=== PATIENT | male | born 1950 | race Caucasian/White ===

== ENCOUNTER 2021-02-13 07:16 | Day surgery (SDC) | payer OTHER ==
[2021-02-06 11:52] VITALS: BMI 30.5
[~2021-02-13 07:16] MED LIST: CEFAZOLIN 2 GM/D5W 2 GM/50 ML ML IVPB ONE; CELECOXIB 200 MG CAPSULE PO ONE
[2021-02-13] MEDS ORDERED: MIDAZOLAM HCL 2 MG/2 ML SINGLE DOSE VIAL ONE (07:36)
[2021-02-13] MEDS ORDERED: SODIUM CHLORIDE 0.9% P/F 10 ML VIAL IJ ONE (07:36)
[2021-02-13] MEDS ORDERED: BUPIVACAINE HCL/PF 0.5% (5MG/ML) 10 ML VIAL ONE (07:36)
[2021-02-13] MEDS ORDERED: BUPIVACAINE LIPOSOME/PF (EXPAREL) 266 MG/20 ML VIAL ONE (07:36)
[2021-02-13] MEDS ORDERED: TRANEXAMIC ACID 1000 MG/10 ML VIAL IVPUSH ONE (08:00)
[2021-02-13] MEDS ORDERED: CELECOXIB 200 MG CAPSULE ONE (08:07)
[2021-02-13] MEDS ORDERED: PROPOFOL 20 ML ONE ×4 (08:41→11:11)
[2021-02-13] MEDS ORDERED: TRANEXAMIC ACID 1000 MG/10 ML VIAL ONE ×2 (09:16→10:46)
[2021-02-13] MEDS ORDERED: ONDANSETRON 4 MG/2 ML VIAL IVPUSH PRN ×2 (09:27→11:58)
[2021-02-13] MEDS ORDERED: oxyCODONE HCL 5 MG TABLET PO PRN (09:27)
[2021-02-13] MEDS ORDERED: ACETAMINOPHEN 1000 MG/100 ML VIAL (NON FORMULARY) IVPB ONE ×2 (09:27→12:06)
[2021-02-13] MEDS ORDERED: LACTATED RINGERS SOLUTION 1,000 ML IV SCH ×2 (09:30→12:00)
[2021-02-13] MEDS ORDERED: ONDANSETRON 4 MG/2 ML VIAL ONE ×2 (09:42→10:46)
[2021-02-13] MEDS ORDERED: LIDOCAINE HCL/PF 2% SDV 5ML VIAL ONE (09:42)
[2021-02-13] MEDS ORDERED: DEXAMETHASONE SOD PHOSPHATE 4 MG/1 ML VIAL ONE ×2 (09:42→10:46)
[2021-02-13] MEDS ORDERED: KETOROLAC TROMETHAMINE 30 MG/1 ML VIAL ONE (10:58)
[2021-02-13] MEDS ORDERED: MAG HYDROX/AL HYDROX/SIMETH 30 ML UNIT-DOSE CUP PO PRN (11:58)
[2021-02-13] MEDS ORDERED: MAGNESIUM HYDROX 2400MG/30ML ORAL SUSPENSION 30 ML CUP PO PRN (11:58)
[2021-02-13] MEDS ORDERED: FAMOTIDINE 20 MG TABLET PO SCH (13:00)
[2021-02-13] MEDS: ACETAMINOPHEN 325 MG TABLET (FP) PO SCH ×3 (15:20→21:11)
[2021-02-13] MEDS: oxyCODONE HCL 5 MG TABLET PO PRN ×2 (16:03→21:17)
[2021-02-13] MEDS ORDERED: CEFAZOLIN 1 GM in DEXTROSE 5%-WATER - 50 ML IVPB SCH (17:00)
[2021-02-13] MEDS: CEFAZOLIN 1 GM/D5W 1 GM/50 ML BAG IVPB SCH (17:37)
[2021-02-13] MEDS: SENNOSIDES/DOCUSATE COMBO (SENNA PLUS) TABLET (UD) PO SCH (21:11)
[2021-02-13] MEDS: ASPIRIN 81 MG CHEWABLE TABLETS PO SCH (21:12)
[2021-02-13] MEDS: IBUPROFEN 600 MG TABLET (FP) PO SCH (21:13)
[2021-02-13] MEDS ORDERED: GABAPENTIN 300 MG CAPSULE PO SCH (22:00)
[2021-02-14] MEDS: oxyCODONE HCL 5 MG TABLET PO PRN ×3 (00:49→09:30)
[2021-02-14] MEDS: CEFAZOLIN 1 GM/D5W 1 GM/50 ML BAG IVPB SCH (02:00)
[2021-02-14] MEDS: ACETAMINOPHEN 325 MG TABLET (FP) PO SCH ×2 (04:42→14:47)
[2021-02-14] MEDS: IBUPROFEN 600 MG TABLET (FP) PO SCH ×2 (07:25→14:48)
[2021-02-14 08:08] LABS: HEMATOCRIT 33.7 % (35.4-49); HEMOGLOBIN 11.1 GM/dl (11.7-16.9); MCH 26.4 pg (25.7-33.7); MCHC 32.9 g/dl (32.0-35.9); MEAN CELL VOLUME 80.2 fl (80-96); MEAN PLT VOLUME 7.6 fl (7.5-11.1); PLATELET COUNT 238 10^3/uL (134-434); RDW 14.6 % (11.9-15.9); WHITE BLOOD COUNT 8.6 K/mm3 (4.0-10.8)
[2021-02-14 08:30] LABS: CALCIUM 8.3 mg/dl (8.5-10); CREATININE 0.9 mg/dl (0.55-1.3)
[2021-02-14] MEDS: ASPIRIN 81 MG CHEWABLE TABLETS PO SCH (09:28)
[2021-02-14] MEDS: SENNOSIDES/DOCUSATE COMBO (SENNA PLUS) TABLET (UD) PO SCH (09:28)
[2021-02-14] MEDS ORDERED: PANTOPRAZOLE 20 MG TABLET PO SCH (10:00)
[2021-02-14] MEDS ORDERED: MULTIVITAMINS (DAILY MVI) TABLET (FP) PO SCH (10:00)
[2021-02-14] MEDS ORDERED: CELECOXIB 200 MG CAPSULE PO SCH (10:00)
[2021-02-14] MEDS ORDERED: PANTOPRAZOLE 40 MG TABLET PO SCH (10:00)
[2021-02-14 14:30] VITALS: BP 110/66; PULSE 62; TEMP 98.4
== END 2021-02-14 15:11 | disposition home health service (06) ==
LOC: FASUSAT 07:16 → UNDOADMIN 13:34 → FM/S 13:34 → FASUSAT 02-14 15:11
PROVIDERS: ATTEND Orthopaedic Surgery
PROC: 0SRC0J9 Replacement of Right Knee Joint with Synthetic Substitute, Cemented, Open Approach (ICD-10-PCS; principal; 2021-02-13 09:34)
DX: M17.11 Unilateral primary osteoarthritis, right knee (principal)
CPT/HCPCS: 27447; C1776; 36415; 73560-TC-RT-FY; 80048; 85027; 88305-TC; 88311-TC; 94760; 97010-GP; 97116-GP; 97162-GP; J0131